=== PATIENT | female | born 1995 | race Caucasian/White ===

== ENCOUNTER 2020-05-06 20:08 | Inpatient (IN) | payer MEDICAID ==
[2020-05-06 20:29] LABS: ABSOLUTE EOSINOPHILS # (AUTO) 0.1 10^3/uL (0.0-0.6); ABSOLUTE LYMPHOCYTES (AUTO) 2.4 10^3/uL (0.5-4.7); ABSOLUTE MONOCYTES (AUTO) 1.2 10^3/uL (0.1-1.4); ABSOLUTE NEUT (AUTO) 6.9 10^3/uL (1.7-8.2); BASOPHILS % (AUTO) 0.3 % (0-2); EOSINOPHILS % (AUTO) 1.1 % (0-6); HEMATOCRIT 34.2 % (36.0-47.0); HEMOGLOBIN 11.4 g/dL (12.0-15.5); LYMPHOCYTES % (AUTO) 22.7 % (13-45); MEAN CORPUSCULAR HGB CONC 33.4 g/dL (32.0-36.0); MEAN CORPUSCULAR VOLUME 87 fl (80-97); MONOCYTES % (AUTO) 11.4 % (3-13); PLATELET COUNT 216 10^3/uL (150-450); RED BLOOD COUNT 3.93 10^6/uL (3.72-5.28); RED CELL DISTRIBUTION WIDTH 13.7 % (11.5-14.0); SEGMENTED NEUTROPHILS % (AUTO) 64.5 % (42-78); TOTAL CELLS COUNTED % (AUTO) 100 %; WHITE BLOOD COUNT 10.6 10^3/uL (4.0-10.5)
[2020-05-06] MEDS ORDERED: CITRIC ACID/SODIUM CITRATE ORAL SOLN 15 ML UDCUP ONE (20:47)
[2020-05-06] MEDS ORDERED: RINGERS SOLUTION,LACTATED 1,000 ML IV PRN ×2 (20:47→23:25)
[2020-05-06] MEDS ORDERED: BETAMET ACET/BETAMET NA INJ 6 MG/1 ML ONE (20:47)
[2020-05-06] MEDS ORDERED: RINGERS SOLUTION,LACTATED 1,000 ML IV ONE (20:47)
[2020-05-06] MEDS ORDERED: CEFAZOLIN 2 GM/D5W RTU 2 GM/50 ML RTUPB IV ONE (20:48)
[2020-05-06 20:59] LABS: ABSOLUTE EOSINOPHILS # (AUTO) 0.1 10^3/uL (0.0-0.6); ABSOLUTE NEUT (AUTO) 6.1 10^3/uL (1.7-8.2); BASOPHILS % (AUTO) 0.2 % (0-2); HEMATOCRIT 30.9 % (36.0-47.0); HEMOGLOBIN 10.7 g/dL (12.0-15.5); LYMPHOCYTES % (AUTO) 22.1 % (13-45); MEAN CORPUSCULAR HEMOGLOBIN 29.5 pg (27.0-33.4); MEAN CORPUSCULAR HGB CONC 34.7 g/dL (32.0-36.0); MEAN CORPUSCULAR VOLUME 85 fl (80-97); MONOCYTES % (AUTO) 11.2 % (3-13); PLATELET COUNT 213 10^3/uL (150-450); RED BLOOD COUNT 3.64 10^6/uL (3.72-5.28); RED CELL DISTRIBUTION WIDTH 13.4 % (11.5-14.0); SEGMENTED NEUTROPHILS % (AUTO) 65.5 % (42-78); TOTAL CELLS COUNTED % (AUTO) 100 %; WHITE BLOOD COUNT 9.3 10^3/uL (4.0-10.5)
[2020-05-06 21:06] LABS: INTERNATIONAL RATION (INR) 0.89
[2020-05-06 21:07] LABS: FIBRINOGEN 405 mg/dL (209-497); PARTIAL THROMBOPLASTIN TIME 25.7 SEC (23.5-35.8)
[2020-05-06] MEDS ORDERED: NORMAL SALINE 250 ML IV PRN (21:09)
[2020-05-06 21:12] LABS: BACTERIA (WET MOUNT) 3+ BACTERIA SEEN; EPITHELIALS (WET MOUNT) 3+ EPITHELIALS SEEN; RBCS (WET MOUNT) 4+ RBCS SEEN; T.VAGINALIS (WET MOUNT) NO TRICHOMONAS SEEN; WBCS (WET MOUNT) FEW WBCS SEEN; YEAST (WET MOUNT) NO YEAST SEEN
[2020-05-06] MEDS ORDERED: MISOPROSTOL 0.2 MG TABLET ONE (21:21)
--- NOTE | 2020-05-06 21:21 | PDOC H&P ---
History of Present Illness Admission Date/PCP: 05/06/20 20:59 History of Present Illness: CHEIKH RM is a 24 year old female G1 at 33.5 wks EGA who reports falling today and landed on one hip. She felt okay afterwards and felt baby moving but then about 1/2 hour ago she had a gush of bloody fluid followed by at least two more gushes of blood. SHe came directly to ED and blood was noted on floor as well as down patients ankles there. SHe reports pain in abdomen and she thinks she is feeling the baby still but is very scared. Denies medical issues, complications in the but she was told she has a possible septum in the uterus and baby is breech. She passed her glucose tests. Denies hx of drug/alcohol or tobacco In conversation about the baby she reports " I thought she might be coming soon because I have been checking my cervix and I can get one finger in now" Social History Smoking Status: Never Smoker Family History Parental Family History Reviewed: Yes Children Family History Reviewed: Yes Sibling(s) Family History Reviewed.: Yes Medication/Allergy Allergies/Adverse Reactions: No Known Allergies Allergy (Verified 05/06/20 20:28) Review of Systems Constitutional: ABSENT: chills, fever(s), headache(s), weight gain, weight loss Cardiovascular: ABSENT: chest pain, dyspnea on exertion, edema, orthropnea, palpitations Respiratory: ABSENT: cough, hemoptysis Gastrointestinal: ABSENT: abdominal pain, constipation, diarrhea, hematemesis, hematochezia, nausea, vomiting Genitourinary: ABSENT: dysuria, hematuria Neurological: ABSENT: abnormal gait, abnormal speech, confusion, dizziness, focal weakness, syncope Psychiatric: ABSENT: anxiety, depression, homidical ideation, suicidal ideation Hematologic/Lymphatic: ABSENT: easy bleeding, easy bruising Physical Exam - Physical Exam Vital Signs: Temp Pulse Resp BP Pulse Ox 99.4 F 108 H 23 H 127/115 H 100 05/06/20 20:21 05/06/20 20:21 05/06/20 20:21 05/06/20 20:21 05/06/20 20:21 Intake & Output 05/05/20 05/06/20 05/07/20 06:59 06:59 06:59 Weight 78.018 kg General appearance: PRESENT: no acute distress, cooperative Respiratory exam: PRESENT: clear to auscultation anjelica Cardiovascular exam: PRESENT: RRR, +S1, +S2 Neurological exam: PRESENT: alert, awake, oriented to person, oriented to place, oriented to time Psychiatric exam: PRESENT: anxious, appropriate affect Skin exam: PRESENT: dry, intact, warm. ABSENT: cyanosis, rash - Gynecological Exam Labia: normal Perineum: normal Vagina: normal Cervix: other - by sterile speculum exam-cervix is dilated cm or less with blood coming from os. She has small clots and bright red blood in vault. - Obstetrical Exam Tender: Yes Result Laboratory Results: 05/06/20 20:37 05/06/20 05/06/20 20:20 20:37 WBC 10.6 H 9.3 RBC 3.93 3.64 L Hgb 11.4 L 10.7 L Hct 34.2 L 30.9 L MCV 87 85 MCH 29.0 29.5 MCHC 33.4 34.7 RDW 13.7 13.4 Plt Count 216 213 Seg Neutrophils % 64.5 65.5 Assessment & Plan - Diagnosis (1) Placental abruption Qualifiers: Trimester: third trimester Qualified Code(s): O45.93 - Premature separation of placenta, unspecified, third trimester Is this a current diagnosis for this admission?: Yes (2) Abnormal ultrasound of uterus Is this a current diagnosis for this admission?: Yes (3) Group B streptococcal carriage complicating Is this a current diagnosis for this admission?: Yes - Plan Summary Plan Summary: 24 yo G1 at approximately 33.5 wks EGA with placental abruption, PPROM, recent fall -Admit to LDR -NPO, and two large bore IVs. Begin IVFs LR 1 liter now, T&C, cross match for 2 units on hold -Ancef 2 gms IV prior to OR -abdominal prep -Give one dose BMZ now -Plan for PCS
[2020-05-06] MEDS ORDERED: METHYLERGONOVINE MALEATE INJ/PF 0.2 MG/1 ML AMPULE ONE (21:22)
[2020-05-06] MEDS ORDERED: FENTANYL CITRATE INJ/PF 100 MCG/2 ML AMPUL ONE (21:27)
[2020-05-06] MEDS ORDERED: OXYTOCIN 10 UNIT/ML VIAL ONE (21:27)
[2020-05-06] MEDS ORDERED: KETOROLAC TROMETHAMINE INJ/PF 30 MG/1 ML SDV ONE (21:27)
[2020-05-06] MEDS ORDERED: ACETAMINOPHEN 1,000 MG/100 ML RTUPB IV ONE (21:28)
[2020-05-06] MEDS ORDERED: EPHEDRINE SULFATE INJ 50 MG/1 ML AMPULE ONE (21:28)
[2020-05-06] MEDS ORDERED: OXYTOCIN/0.9 % SODIUM CHLORIDE 30 UNIT/500 ML RTUINJ ONE (21:28)
[2020-05-06] MEDS ORDERED: ONDANSETRON HCL INJ/PF 4 MG/2 ML SDV ONE (21:28)
[2020-05-06] MEDS ORDERED: MIDAZOLAM 2 MG/2 ML INJ ONE (21:28)
[2020-05-06 21:30] LABS: APPEARANCE,URINE CLEAR; BILIRUBIN,URINE NEGATIVE (NEGATIVE); COLOR,URINE COLORLESS; GLUCOSE, URINE NEGATIVE (NEGATIVE); KETONES,URINE NEGATIVE (NEGATIVE); LEUKOCYTE ESTERASE,URINE NEGATIVE (NEGATIVE); NITRITE,URINE NEGATIVE (NEGATIVE); PROTEIN,URINE NEGATIVE (NEGATIVE); URINE SPECIFIC GRAVITY 1.004; UROBILINOGEN,URINE NEGATIVE mg/dL (<2.0)
[2020-05-06 21:54] LABS: URINE AMPHETAMINES SCREEN NEGATIVE; URINE BARBITURATES SCREEN NEGATIVE; URINE BENZODIAZEPINES SCREEN NEGATIVE; URINE COCAINE SCREEN NEGATIVE; URINE METHADONE SCREEN NEGATIVE; URINE PHENCYCLIDINE SCREEN NEGATIVE
[2020-05-06 22:01] LABS: URINE MARIJUANA (THC) SCREEN UNCONFIRMED POSITIVE
[2020-05-06 22:39] LABS: CHLAM PCR NOT DETECTED (NOT DETECT)
[2020-05-06] MEDS ORDERED: NALBUPHINE HCL INJ 10 MG/1 ML AMPULE ONE (22:54)
--- NOTE | 2020-05-06 23:20 | Operative Report ---
Operative Report DATE OF SURGERY: 05/06/20 PREOPERATIVE DIAGNOSIS: Intrauterine at 33.5 wks EGA. Placental abru ption. PPROM. Fall on concrete earlier today. History of uterine abnormality POSTOPERATIVE DIAGNOSIS: Same as above. Large clots of dark blood noted in lower uterine segment and right side of uterus. Uterine septum from fundus to lower uterine segment OPERATION: Primary section SURGEON: BRANDON REYES ANESTHESIA: Spinal TISSUE REMOVED OR ALTERED: Placenta, old clots COMPLICATIONS: None ESTIMATED BLOOD LOSS: 700 cc INTRAOPERATIVE FINDINGS: Uterus with large thick septum in center extending from the fundus to the lower uterine segment. Bilateral fallopian tubes and ovaries appear normal. Clear amniotic fluid initially and then blood tinged. Large dark clots noted-multiple. Viable female with nuchal cord x1 PROCEDURE: IV fluids: per anesthesia record Urinary output: 800 cc Position: To recovery room in stable condition Description of procedure: The patient was taken to the operating room and spinal anesthesia was administered and found to be adequate. She was then placed on the OR table in the supine position with a slight leftward tilt. heart tones assesssed at 140 bpm. Patient was prepped and draped in usual sterile fashion. Ancef 2 gms was given IV prior to the procedure for infection prophylaxis. Timeout was taken. A Pfannenstiel skin incision was then made approximately 3 cm above the pubic symphysis and carried down to level the rectus fascia. The rectus fascia was then nicked in the midline with a scalpel and the fascial incision was extended laterally with use of curved Melgar scissors. The rectus fascia was then grasped with 2 Kocker clamps elevated and the underlying rectus muscle was dissected off both bluntly and sharply. Any bleeding controlled with cautery. The rectus muscles were then split in the midline and the peritoneum was entered. The peritoneal incision was then extended by manually stretching the peritoneum. The bladder blade was positioned. Bladder flap created and bladder blade replaced. The bladder was noted to be out of harm's way. A scalpel was then used in the lower uterine for the hysterotomy, slowly until amniotomy was obtained a large amount of fluid was noted--clear to blood tinged. The uterine incision was then manually stretched. The was noted to mable breech postion. The feet were delivered with minmal difficulty. The legs and body were delivered to the level of the shoulders and each arm was reduced and delivered. The head was then delivered with minimal difficulty. Nuchal x1 noted and reduced right after the head delivered. Infant breathing and fluid noted coming from nose and mouth. Oral and nasal suctioned with bulb syringe. The cord was cut clamped and the infant was handed off to the nurse awaiting. Infant had tone with arms reaching in the air at hand off. The placenta was manually delivered and large dark red clots noted. A thick uterine septum noted from fundus to the lower uterine segment. Using a lap gauze the uterus was cleared of all clots and debris. RIng forcep with a 4x4 gauze used to clear two large clots for the right side of the septum near the fundus. An rosa retractor was then placed and the bladder blade placed. The uterine incision was then closed with 0 Chromic suture in a running locked fashion. A second layer of the same suture was used in a running locked imbricated fashion. The uterine incision was inspected and one area was oozing in the center of the incision and a box stitch was placed. It was then noted to be hemostatic. Retractor was removed. The posterior aspect of the uterus was then inspected and anatomy was seen as above. Warm saline irrigation was used to clear all clots and debris from the abdomen. The uterine incision was inspected once more and noted to remain hemostatic. The bladder blade was removed and the peritoneum was closed with 2-0 chromic in a running fashion. The rectus muscles were then reapproximated and the rectus fascia was closed with a #1 PDS in a running fashion. The subcutaneous tissue was then inspected and any bleeding was controlled with Bovie electrocautery. The subcutaneous tissue was then closed with 2-0 Plain Gut suture in a running fashion. The skin was then closed with 4-0 Monocryl in a running subcuticular fashion. The skin incision was then clean dried and Dermabond was applied over the skin incision. All instrument sponge and needle counts were correct x3 for the procedure the patient tolerated the procedure well. She will proceed to recovery room in stable condition
[2020-05-06] MEDS ORDERED: SIMETHICONE 80 MG TAB.CHEW PO PRN (23:25)
[2020-05-06] MEDS ORDERED: ACETAMINOPHEN 325 MG TABLET PO PRN (23:25)
[2020-05-06] MEDS ORDERED: PROMETHAZINE HCL INJ 25 MG/1 ML VIAL IV PRN (23:25)
[2020-05-06] MEDS ORDERED: OXYTOCIN/0.9 % SODIUM CHLORIDE 30 UNIT/500 ML RTUINJ IV PRN (23:25)
[2020-05-06] MEDS ORDERED: HYDROMORPHONE HCL INJ/PF 2 MG/ML AMPULE IV PRN (23:25)
[2020-05-06] MEDS ORDERED: DIPH/PERTUSS(ACELL)/TETANUS VAC/PF 0.5 ML SYR (>=10YO) IM PRN (23:25)
[2020-05-06] MEDS ORDERED: MEASLES,MUMPS&RUBELLA VACC/PF 0.5 ML VIAL SUBCUT PRN (23:25)
[2020-05-06] MEDS ORDERED: KETOROLAC TROMETHAMINE INJ/PF 30 MG/1 ML SDV IV ONE (23:45)
[2020-05-07] MEDS ORDERED: KETOROLAC TROMETHAMINE INJ/PF 30 MG/1 ML SDV ONE (00:47)
--- NOTE | 2020-05-07 01:21 | PDOC DELIVERY SUMMARY ---
Delivery Summary - Maternal Hx : I Hx Para: 0 Intrapartum: Abruption Ruptured Membranes: SROM Fluids: Bloody - Delivery Presentation: Breech Heart Rate Monitoring: Done Pre-Operatively, Externally Uterine Contraction Monitoring: External Pattern: Variable Decels Support Person Present: Yes Location: OR : Emergency Placenta: Abnormal Placenta Description: Areas of abruption with dark clots noted Number of Vessels (Cord): 3 Nuchal Cord: Yes - x1, loose Estimated Blood Loss: 700cc - Medications Type of Anesthesia:: Spinal - Delivery Personnel RN: SANDEEP RENE MD: BRANDON REYES
[2020-05-07] MEDS: OXYCODONE-ACETAMINOPHEN 5-325 MG TABLET PO PRN ×3 (01:53→19:05)
--- NOTE | 2020-05-07 02:21 | Delivery Summary ---
Del Sum A-C Datetime Report Generated by CPN: 05/07/2020 02:21 DELIVERY PERSONNEL DELIVERY PERSONNEL: [id number] Delivery Doctor:: Nancy Beard MD Anesthesiologist:: Pallister PICU NURSE:: Maurice Elliott, PICU NURSE Material Flow Engineer:: Adrianpablo Alexander, RN Minute Clerk/PAN PULLER: Yasmine Myers, ST Minute Clerk/PAN PULLER: Arielle Lee, ST MATERNAL INFORMATION Delivery Anesthesia: Spinal Medications After Delivery: Pitocin 30 Units in 500ml NS/D5W; Pitocin Drip 20 Units/1000ml NSS Meds After Delivery Comment: IV infuisng per order. Delivery QBL: 280 Maternal Complications: Abruptio Placenta; Premature Rupture of Membranes LABOR SUMMARY EDC: 06/19/2020 00:00 No. Babies in Womb: 1 Attempted: No Labor Anesthesia: Spinal LABOR INFORMATION Reason for Induction: Not Applicable Onset of Labor: 05/06/2020 20:00 Oxytocin: N/A Group B Beta Strep: Unknown Antibiotics # of Doses: 0 Steroids Given: Partial Course; < 24 Hours before Delivery Reason Steroids Not Administered: Indication; Imminent Delivery MEMBRANES Membranes Rupture Method: Spontaneous Rupture of Membranes: 05/06/2020 20:00 Length of Rupture (hr): 2.17 Amniotic Fluid Color: Bloody Amniotic Fluid Amount: Large Amniotic Fluid Odor: Normal STAGES OF LABOR Stage 3 hr: 0 Stage 3 min: 1 Total Time in Labor hr: 2 Total Time in Labor min: 11 VAGINAL DELIVERY Episiotomy: None Laceration #1: None Laceration Repair: Not Applicable Sponge Count Correct: N/A Sharps Count Correct: N/A CSECTION DELIVERY Primary Indication: Abruptio Placenta Secondary Indication: PPROM CSection Urgency: Emergency CSection Incidence: Primary Labor: No Labor Elective: Nonelective CSection Incision: Lower Uterine Transverse BABY A INFORMATION Infant Delivery Date/Time: 05/06/2020 22:10 Method of Delivery: Vaginal Born in Route : No : N/A Forceps: N/A Vacuum Extraction: N/A Shoulder Dystocia : No PRESENTATION/POSITION BABY A Presentation: Breech Breech Presentation: Complete PLACENTA INFORMATION BABY A Placenta Delivery Time : 05/06/2020 22:11 Placenta Method of Delivery: Manual Removal Placenta Status: Delivered SCORES BABY A Heart Rate 1 min: Slow, Below 100 bpm Resp Effort 1 min: Absent Reflex Irritability 1 min: No Response Muscle Tone 1 min: Flaccid Color 1 min: Blue/Pale SCORE 1 MIN: 1 Heart Rate 5 min: >100 bpm Resp Effort 5 min: Good Cry Reflex Irritability 5 min: Cough or Sneeze or Pulls Away Muscle Tone 5 min: Some Flexion of Extremities Color 5 min: Body [place], Extremities Blue SCORE 5 MIN: 8 INFANT INFORMATION BABY A Gestational Age at Delivery: 33.5 Gestational Status: - <34 Weeks Outcome : Liveborn Infant Condition : Stable Sex: Female IDENTIFICATION BABY A Infant Verification Date/Time: 05/06/2020 22:18 ID Band Number: [id number] Mother's Name Verified: Yes RN Verifying : , RN and A.Earle, RN WEIGHT/LENGTH BABY A Birthweight (gm): 1962 Infant Weight (lb): 4 Infant Weight (oz): 5 Length (in): 17.00 Infant Length (cm): 43.18 CORD INFORMATION BABY A No. Cord Vessels: 3 Nuchal Cord : Around Neck x2, Loose Cord Blood Taken: Yes-For Eval (Mom's Blood Type - or O+) Suction: Mouth; Nose ASSESSMENT BABY A Skin to Skin: No BABY B INFORMATION : N/A ON review, I do not agree with score given. Infant had tone when handed off. She was reaching for and grabbed the assistants face mask, was pink and cried during delivery of the head as well as while I was suctioning her nose and mouth. I would assess at 1 minute to be 6 MTDD
--- NOTE | 2020-05-07 04:02 | ER Document Report ---
ED General - General Chief Complaint: Vag Bleeding, +preg <12wks Stated Complaint: FALL/VAGINAL BLEEDING Mode of Arrival: Ambulatory Information source: Patient, Relative Notes: Patient is a 24-year-old female presenting to the emergency department by POV chief complaint of spontaneous bleeding while . Patient states that early this morning around 10 AM she had a fall and then this evening about 8 PM she started spontaneously bleeding vaginally and was having mild cramping to the lower abdomen. Patient states she is approximately 34 weeks . Patient has no nausea vomiting diarrhea fevers chills prior to this event. TRAVEL OUTSIDE OF THE [place] IN LAST 30 DAYS: No - HPI Onset: Just prior to arrival Onset/Duration: Sudden Quality of pain: Throbbing Severity: Moderate Pain Level: 3 Associated symptoms: Nausea Exacerbated by: Standing, Movement, Walking Relieved by: Denies Similar symptoms previously: No Recently seen / treated by doctor: No - Related Data Allergies/Adverse Reactions: No Known Allergies Allergy (Verified 05/06/20 20:28) Past Medical History - General Information source: Patient - Social History Smoking Status: Never Smoker Chew tobacco use (# tins/day): No Frequency of alcohol use: None Drug Abuse: None Lives with: Spouse/Significant other Family History: Reviewed & Not Pertinent Patient has suicidal ideation: No Patient has homicidal ideation: No - Medical History Medical History: Negative Psychiatric Medical History: Denies: Hx Depression Surgical Hx: Negative Review of Systems - Review of Systems Constitutional: No symptoms reported EENT: No symptoms reported Cardiovascular: No symptoms reported Respiratory: No symptoms reported Gastrointestinal: See HPI Genitourinary: See HPI Female Genitourinary: See HPI, , Vaginal bleeding Musculoskeletal: No symptoms reported Skin: No symptoms reported Hematologic/Lymphatic: No symptoms reported Neurological/Psychological: No symptoms reported Physical Exam - Vital signs Vitals: Temp Pulse Resp BP Pulse Ox 99.4 F 108 H 23 H 127/115 H 100 05/06/20 20:21 05/06/20 20:21 05/06/20 20:21 05/06/20 20:21 05/06/20 20:21 - Notes Notes: PHYSICAL EXAMINATION: GENERAL: Well-appearing, well-nourished and in no acute distress. HEAD: Atraumatic, normocephalic. EYES: Pupils equal round and reactive to light, extraocular movements intact, sclera anicteric, conjunctiva are normal. ENT: nares patent, oropharynx clear without exudates. Moist mucous membranes. NECK: Normal range of motion, supple without lymphadenopathy, no appreciable JVD LUNGS: Lungs clear to auscultation bilaterally and equal. No wheezes rales or rhonchi. HEART: Slightly tachycardic rate and rhythm without murmurs ABDOMEN: Obvious gravid uterus bowel sounds are present tender to palpation in the suprapubic region, spontaneous vaginal bleeding EXTREMITIES: Active full range of motion, no pitting or edema. No cyanosis. 2+ pulses x4 NEUROLOGICAL: No focal neurological deficits. Moves all extremities spontaneously and on command. SKIN: Warm, Dry, and intact. Normal turgor, no rashes or lesions noted. Course - Re-evaluation Re-evalutation: 05/07/20 04:07 Upon presentation to the emergency department patient was immediately brought back to room #4 and upon examination patient was bleeding spontaneously from the vaginal region. Immediately DRAWING SUPERVISOR was called. While IV access was being obtained along with vital signs and basic evaluation patient was able to tolerate a transabdominal ultrasound performed by which demonstrated a single living intrauterine with spontaneous movement, positive cardiac movement. Dr. Beard toe closing machine tender did present to the emergency department and evaluated the patient and agreed with admission to OB for further evaluation treatment and disposition. Patient was stable at time of transfer to the OB floor. - Vital Signs Vital signs: Temp Pulse Resp BP Pulse Ox 97.8 F 76 16 145/89 H 100 05/07/20 03:19 05/07/20 03:19 05/07/20 03:19 05/07/20 03:19 05/07/20 03:19 - Laboratory Result Diagrams: 05/06/20 20:37 Laboratory results interpreted by me: 05/06/20 05/06/20 05/06/20 20:20 20:30 20:37 WBC 10.6 H RBC 3.64 L Hgb 11.4 L 10.7 L Hct 34.2 L 30.9 L Membranes Rupture POSITIVE H Crossmatch 05/06/20 20:37 WBC RBC Hgb Hct Membranes Rupture Crossmatch See Detail Discharge - Discharge Clinical Impression: Vaginal bleeding during , Accidental fall Condition: Serious Disposition: ADMITTED INPATIENT Admitting Provider: Kisha Unit Admitted: Labor and Delivery
[2020-05-07] MEDS ORDERED: KETOROLAC TROMETHAMINE INJ/PF 30 MG/1 ML SDV IV SCH (06:00)
[2020-05-07 07:59] LABS: HEMATOCRIT 30.5 % (36.0-47.0); HEMOGLOBIN 10.5 g/dL (12.0-15.5); MEAN CORPUSCULAR HGB CONC 34.6 g/dL (32.0-36.0); MEAN CORPUSCULAR VOLUME 84 fl (80-97); PLATELET COUNT 185 10^3/uL (150-450); RED BLOOD COUNT 3.64 10^6/uL (3.72-5.28); RED CELL DISTRIBUTION WIDTH 13.5 % (11.5-14.0)
[2020-05-07 08:33] LABS: WHITE BLOOD COUNT 21.4 10^3/uL (4.0-10.5)
--- NOTE | 2020-05-07 09:02 | PDOC PROGRESS REPORT ---
Subjective-OB Progress Note for:: 05/07/20 Subjective: Doing well, ready to get catheter out and go to nursery and see baby, pain under control with meds, eating well, feeling gas, hsb at BS, baby doing ok Physical Exam (OB) Vital Signs: Temp Pulse Resp BP Pulse Ox 97.7 F 89 16 136/75 H 98 05/07/20 04:21 05/07/20 04:21 05/07/20 04:21 05/07/20 04:21 05/07/20 04:21 Intake & Output 05/06/20 05/07/20 05/08/20 06:59 06:59 06:59 Output Total 2200 Balance -2200 Weight 78.018 kg - PIH/Pre-Eclampsia Headache: Absent Epigastric Pain: No Visual Changes: No - Dressing Removed: No Incision: Open Closure Type: Surgical Glue - Lochia Lochia Amount: Small 10-25 ml Lochia Color: Rubra/Red - Abdomen Description: Tender, Soft Hernia Present: No Fundal Description: Firm, Midline Fundal Height: u/u - u/2 Objective-Diagnostic Laboratory: 05/07/20 07:06 05/06/20 05/06/20 05/06/20 20:20 20:37 20:37 WBC 10.6 H 9.3 RBC 3.93 3.64 L Hgb 11.4 L 10.7 L Hct 34.2 L 30.9 L MCV 87 85 MCH 29.0 29.5 MCHC 33.4 34.7 RDW 13.7 13.4 Plt Count 216 213 Seg Neutrophils % 64.5 65.5 Urine Color Urine Appearance Urine pH Ur Specific [place] Urine Protein Urine Glucose (UA) Urine Ketones Urine Blood Urine Nitrite Ur Leukocyte Esterase Urine WBC (Auto) Urine RBC (Auto) Blood Type O POSITIVE Antibody Screen NEGATIVE 05/06/20 05/07/20 20:50 07:06 WBC 21.4 H D RBC 3.64 L Hgb 10.5 L Hct 30.5 L MCV 84 MCH 29.0 MCHC 34.6 RDW 13.5 Plt Count 185 Seg Neutrophils % Urine Color COLORLESS Urine Appearance CLEAR Urine pH 7.0 Ur Specific [place] 1.004 Urine Protein NEGATIVE Urine Glucose (UA) NEGATIVE Urine Ketones NEGATIVE Urine Blood NEGATIVE Urine Nitrite NEGATIVE Ur Leukocyte Esterase NEGATIVE Urine WBC (Auto) 1 Urine RBC (Auto) 0 Blood Type Antibody Screen Assessment and Plan(PN) - Assessment and Plan (1) Placental abruption Qualifiers: Trimester: third trimester Qualified Code(s): O45.93 - Premature separation of placenta, unspecified, third trimester Is this a current diagnosis for this admission?: Yes (2) Abnormal ultrasound of uterus Is this a current diagnosis for this admission?: Yes (3) Group B streptococcal carriage complicating Is this a current diagnosis for this admission?: Yes (4) Vaginal bleeding during Is this a current diagnosis for this admission?: Yes (5) Accidental fall Qualifiers: Encounter type: initial encounter Qualified Code(s): W19.XXXA - Unspecified fall, initial encounter Is this a current diagnosis for this admission?: Yes (6) Status post emergency section Is this a current diagnosis for this admission?: Yes - Time Spent with Patient Time with patient: Less than 15 minutes Medications reviewed and adjusted accordingly: Yes - Disposition Anticipated Discharge: Home Within: within 24 hours
[2020-05-07] MEDS: DOCUSATE SODIUM 100 MG CAPSULE PO SCH ×2 (10:28→18:21)
[2020-05-07] MEDS: PRENATAL VITAMIN W DHA CAPSULE PO SCH (10:28)
[2020-05-07] MEDS: IBUPROFEN 800 MG TABLET PO SCH ×2 (13:53→22:52)
[2020-05-08] MEDS: IBUPROFEN 800 MG TABLET PO SCH ×3 (05:28→22:36)
[2020-05-08] MEDS: DOCUSATE SODIUM 100 MG CAPSULE PO SCH ×2 (09:22→17:16)
[2020-05-08] MEDS: PRENATAL VITAMIN W DHA CAPSULE PO SCH (09:22)
--- NOTE | 2020-05-08 10:28 | PDOC PROGRESS REPORT ---
Subjective-OB Progress Note for:: 05/08/20 Subjective: Pt doing well, no concerns. Reports light bleeding, reg diet, + flatus and voiding without difficulty. Baby in NICU. Physical Exam (OB) Vital Signs: Temp Pulse Resp BP Pulse Ox 97.7 F 62 17 112/58 L 100 05/08/20 08:03 05/08/20 08:03 05/08/20 08:03 05/08/20 08:03 05/08/20 08:03 Intake & Output 05/07/20 05/08/20 05/09/20 06:59 06:59 06:59 Intake Total 1800 Output Total 2200 1150 Balance -2200 650 Weight 78.018 kg - Dressing Removed: No Incision: Well Approximated Closure Type: Surgical Glue - Lochia Lochia Amount: Scant < 10 ml Lochia Color: Rubra/Red - Abdomen Description: Soft Hernia Present: No Fundal Description: Firm, Midline Fundal Height: u/u - u/2 Objective-Diagnostic Laboratory: 05/07/20 07:06 Assessment and Plan(PN) - Assessment and Plan (1) Abnormal ultrasound of uterus Is this a current diagnosis for this admission?: Yes (2) Accidental fall Qualifiers: Encounter type: initial encounter Qualified Code(s): W19.XXXA - Unspecified fall, initial encounter Is this a current diagnosis for this admission?: Yes (3) Group B streptococcal carriage complicating Is this a current diagnosis for this admission?: Yes (4) Status post emergency section Is this a current diagnosis for this admission?: Yes (5) Vaginal bleeding during Is this a current diagnosis for this admission?: Yes (6) Placental abruption Qualifiers: Trimester: third trimester Qualified Code(s): O45.93 - Premature separation of placenta, unspecified, third trimester Is this a current diagnosis for this admission?: Yes - Time Spent with Patient Time with patient: Less than 15 minutes Medications reviewed and adjusted accordingly: Yes - Disposition Anticipated Discharge: Home Within: within 24 hours
[2020-05-08] MEDS ORDERED: SENNOSIDES/DOCUSATE 8.6-50 MG 1 EACH TABLET PO ONE (15:00)
[2020-05-08] MEDS: OXYCODONE-ACETAMINOPHEN 5-325 MG TABLET PO PRN (20:14)
[2020-05-09] MEDS: DOCUSATE SODIUM 100 MG CAPSULE PO SCH (09:22)
[2020-05-09] MEDS: PRENATAL VITAMIN W DHA CAPSULE PO SCH (09:22)
[2020-05-09] MEDS: IBUPROFEN 800 MG TABLET PO SCH (09:22)
--- NOTE | 2020-05-09 11:12 | PDOC DISCHARGE SUMMARY ---
Impression - Admit/DC Date/PCP Admission Date/Primary Care Provider: 05/06/20 20:59 Discharge Date: 05/09/20 - Discharge Diagnosis (1) Abnormal ultrasound of uterus Is this a current diagnosis for this admission?: Yes (2) Accidental fall Is this a current diagnosis for this admission?: Yes (3) Group B streptococcal carriage complicating Is this a current diagnosis for this admission?: Yes (4) Status post emergency section Is this a current diagnosis for this admission?: Yes (5) Vaginal bleeding during Is this a current diagnosis for this admission?: Yes (6) Placental abruption Is this a current diagnosis for this admission?: Yes - Additional Information Resuscitation Status: Full Code Discharge Diet: Regular Discharge Activity: Balance Activity w/Rest, No Driving, No Lifting Over 10 Pounds, No Lifting/Push/Pulling, Pelvic Rest, Slowly Increase Activity, No tub bath Prescriptions: Oxycodone HCl/Acetaminophen [Percocet 5-325 mg Tablet] 1 tab PO Q4HP PRN #30 tablet PRN Reason: For Pain Scale 3-5 Ibuprofen [Motrin 800 mg Tablet] 800 mg PO Q8HP PRN #60 tablet PRN Reason: Home Medications: Ibuprofen [Motrin 800 mg Tablet] 800 mg PO Q8HP PRN #60 tablet 05/09/20 Oxycodone HCl/Acetaminophen [Percocet 5-325 mg Tablet] 1 tab PO Q4HP PRN #30 tablet 05/09/20 Vit/Dha [ Multi + Dha Capsule] 1 cap PO DAILY capsule 05/09/20 HPI Gestational Age: 33.5 Reason(s) for Admission: Ceasarean Section-Primary, Obstetric Complications, Other Procedures: NST Intrapartum Procedure(s): : Low Cervical, Transverse Results Laboratory Results: WBC 21.4 10^3/uL (4.0-10.5) H D 05/07/20 07:06 RBC 3.64 10^6/uL (3.72-5.28) L 05/07/20 07:06 Hgb 10.5 g/dL (12.0-15.5) L 05/07/20 07:06 Hct 30.5 % (36.0-47.0) L 05/07/20 07:06 MCV 84 fl (80-97) 05/07/20 07:06 MCH 29.0 pg (27.0-33.4) 05/07/20 07:06 MCHC 34.6 g/dL (32.0-36.0) 05/07/20 07:06 RDW 13.5 % (11.5-14.0) 05/07/20 07:06 Plt Count 185 10^3/uL (150-450) 05/07/20 07:06 Lymph % (Auto) 22.1 % (13-45) 05/06/20 20:37 [place] % (Auto) 11.2 % (3-13) 05/06/20 20:37 Eos % (Auto) 1.0 % (0-6) 05/06/20 20:37 Baso % (Auto) 0.2 % (0-2) 05/06/20 20:37 Absolute Neuts (auto) 6.1 10^3/uL (1.7-8.2) 05/06/20 20:37 Absolute Lymphs (auto) 2.0 10^3/uL (0.5-4.7) 05/06/20 20:37 Absolute Monos (auto) 1.0 10^3/uL (0.1-1.4) 05/06/20 20:37 Absolute Eos (auto) 0.1 10^3/uL (0.0-0.6) 05/06/20 20:37 Absolute Basos (auto) 0.0 10^3/uL (0.0-0.2) 05/06/20 20:37 Seg Neutrophils % 65.5 % (42-78) 05/06/20 20:37 PT 12.0 SEC (11.4-15.4) 05/06/20 20:37 INR 0.89 05/06/20 20:37 APTT 25.7 SEC (23.5-35.8) 05/06/20 20:37 Fibrinogen 405 mg/dL (209-497) 05/06/20 20:37 Urine Color COLORLESS 05/06/20 20:50 Urine Appearance CLEAR 05/06/20 20:50 Urine pH 7.0 (5.0-9.0) 05/06/20 20:50 Ur Specific [place] 1.004 05/06/20 20:50 Urine Protein NEGATIVE mg/dL (NEGATIVE) 05/06/20 20:50 Urine Glucose (UA) NEGATIVE mg/dL (NEGATIVE) 05/06/20 20:50 Urine Ketones NEGATIVE mg/dL (NEGATIVE) 05/06/20 20:50 Urine Blood NEGATIVE (NEGATIVE) 05/06/20 20:50 Urine Nitrite NEGATIVE (NEGATIVE) 05/06/20 20:50 Urine Bilirubin NEGATIVE (NEGATIVE) 05/06/20 20:50 Urine Urobilinogen NEGATIVE mg/dL (<2.0) 05/06/20 20:50 Ur Leukocyte Esterase NEGATIVE (NEGATIVE) 05/06/20 20:50 Urine WBC (Auto) 1 /HPF 05/06/20 20:50 Urine RBC (Auto) 0 /HPF 05/06/20 20:50 Squamous Epi Cells Auto <1 /HPF 05/06/20 20:50 Urine Mucus (Auto) RARE /LPF 05/06/20 20:50 Urine Ascorbic Acid NEGATIVE (NEGATIVE) 05/06/20 20:50 Membranes Rupture POSITIVE (NEGATIVE) H 05/06/20 20:30 Epi Cells (Wet Prep) 3+ EPITHELIALS SEEN 05/06/20 20:30 Bacteria (Wet Prep) 3+ BACTERIA SEEN 05/06/20 20:30 Trichomonas (Wet Prep) NO TRICHOMONAS SEEN 05/06/20 20:30 Vaginal WBC FEW WBCS SEEN 05/06/20 20:30 Vaginal RBC 4+ RBCS SEEN 05/06/20 20:30 Vaginal Yeast NO YEAST SEEN 05/06/20 20:30 Urine Opiates Screen NEGATIVE 05/06/20 20:50 Urine Methadone Screen NEGATIVE 05/06/20 20:50 Ur Barbiturates Screen NEGATIVE 05/06/20 20:50 Ur Phencyclidine Scrn NEGATIVE 05/06/20 20:50 Ur Amphetamines Screen NEGATIVE 05/06/20 20:50 U Benzodiazepines Scrn NEGATIVE 05/06/20 20:50 Urine Cocaine Screen NEGATIVE 05/06/20 20:50 U Marijuana (THC) Screen UNCONFIRMED POSITIVE 05/06/20 20:50 RPR NONREACTIVE (NONREACTIVE) 05/06/20 20:37 Chlamydia DNA (PCR) NOT DETECTED (NOT DETECT) 05/06/20 20:30 N.gonorrhoeae DNA (PCR) NOT DETECTED (NOT DETECT) 05/06/20 20:30 Blood Type O POSITIVE 05/06/20 20:37 Blood Type Confirm O POSITIVE 05/06/20 21:34 Antibody Screen NEGATIVE 05/06/20 20:37 Crossmatch See Detail 05/06/20 20:37 Plan Plan of Treatment: f/u at [facility] for incision check Time Spent: Less than 30 Minutes
[2020-05-09 11:16] VITALS: BP 125/76
== END 2020-05-09 12:01 | disposition home or self-care (01) | DRG 788 ==
LOC: ER 20:08 → EDSTATUS 20:31 → LC 20:42 → EDSTATUS 20:47 → LR 20:59 → 2N 05-07 00:18
PROVIDERS: ADMIT Obstetrics & Gynecology; ATTEND Obstetrics & Gynecology
PROC: 10D00Z1 Extraction of Products of Conception, Low, Open Approach (ICD-10-PCS; principal; 2020-05-06)
DX: O45.8X3 Other premature separation of placenta, third trimester (principal); O99.824 Streptococcus B carrier state complicating childbirth; O69.81X0 Labor and delivery complicated by cord around neck, without compression, not applicable or unspecified; O32.1XX0 Maternal care for breech presentation, not applicable or unspecified; O34.593 Maternal care for other abnormalities of gravid uterus, third trimester; Z37.0 Single live birth; Z3A.33 33 weeks gestation of pregnancy; Z91.81 History of falling
CPT/HCPCS: 1961; 36415; 80307; 80349; 81001; 84112; 85025; 85027; 85384; 85610; 85730; 86592; 86850; 86900; 86901; 86920; 87081; 87210; 87491; 87591; 88307; 94760; 94799; 99140; 99285; G0480; J0131; J0690; J0702; J1885; J2210; J2250; J2300; J2405; J2590; J3010; J3490